=== PATIENT | female | born 1980 | race Caucasian/White ===

== ENCOUNTER 2016-05-07 19:00 | Inpatient (IN) | payer MEDICARE, MEDICAID ==
[~2016-05-07] VITALS: Ht 175.3 cm; Wt 65.3 kg
[~2016-05-07 19:00] MED LIST: ARIP882S IM; DIVA500T52 PO; FLUO-191 PO; VENL-68 PO
[2016-05-07] MEDS ORDERED: LORazepam 2 MG TABLET PO PRN (19:45)
[2016-05-07] MEDS ORDERED: ZOLPIDEM TARTRATE 10 MG TABLET PO PRN (19:45)
[2016-05-07] MEDS ORDERED: HALOPERIDOL 5 MG TABLET PO PRN (19:45)
[2016-05-07] MEDS ORDERED: ACETAMINOPHEN 325 MG TABLET PO PRN (20:15)
[2016-05-07] MEDS: DIVALPROEX SODIUM 500 MG ER TABLET PO SCH (20:35)
[2016-05-07 20:43] VITALS: BP 104/55
[2016-05-08 06:29] LABS: BASOPHILS % (AUTO) 0.3 % (0.0-2.0); EOSINOPHILS % (AUTO) 3.9 % (1.0-6.0); HEMATOCRIT 38.5 % (36-46); HEMOGLOBIN 12.8 g/dL (12.0-16.0); LYMPHOCYTES % (AUTO) 24.9 % (22.0-44.0); MEAN CORPUSCULAR HEMOGLOBIN 30.2 pg (26.0-34.0); MEAN CORPUSCULAR HGB CONC 33.3 G/dL (31.0-37.0); MEAN CORPUSCULAR VOLUME 91 fL (80-100); MONOCYTES # (AUTO) 0.6 K/uL (0.1-1.0); MONOCYTES % (AUTO) 7.8 % (2.0-9.0); NEUTROPHILS % (AUTO) 63.1 % (40.0-70.0); PLATELET COUNT (AUTO) 327 K/uL (150-450); RED BLOOD CELL COUNT(AUTO) 4.25 MIL/uL (4.00-5.20); RED CELL DISTRIBUTION WIDTH 13.8 % (11.5-14.5); WHITE BLOOD COUNT (AUTO) 7.9 K/uL (4.5-11.0)
[2016-05-08 07:01] LABS: ALANINE AMINOTRANSFERASE 17 U/L (12-78); ANION GAP 6 mmol/L (8-16); ASPARTATE AMINOTRANSFERASE 13 U/L (15-37); BILIRUBIN,TOTAL 0.3 mg/dL (0.1-1.0); CARBON DIOXIDE 31 mmol/L (22-29); CHLORIDE 100 mmol/L (98-107); CREATININE 0.97 mg/dL (0.60-1.30); GLOMERULAR FILTR. RATE CALC > 60 mL/min (>60); POTASSIUM 4.7 mmol/L (3.5-5.1); SODIUM SERUM 137 mmol/L (136-145); TOTAL PROTEIN, SERUM 7.8 g/dL (6.4-8.2); UREA NITROGEN, BLOOD 17 mg/dL (7-18)
[2016-05-08 08:30] VITALS: BP 110/62
[2016-05-08] MEDS: PANTOPRAZOLE SODIUM 40 MG DR TABLET PO SCH (08:31)
[2016-05-08] MEDS: FLUoxetine HCL 20 MG CAPSULE PO SCH (08:31)
[2016-05-08] MEDS: VENLAFAXINE HCL 150 MG ER CAPSULE PO SCH (08:32)
[2016-05-08] MEDS: NICOTINE 14 MG/24 HOUR PATCH TD SCH (08:32)
[2016-05-08] MEDS: CEPHALEXIN MONOHYDRATE 500 MG CAPSULE PO SCH ×3 (08:32→17:17)
[2016-05-08] MEDS: SULFAMETHOX/TRIMETH DS 800-160 MG/TABLET PO SCH ×2 (08:32→17:17)
[2016-05-08] MEDS: MUPIROCIN CALCIUM 2% 22 GM OINTMENT NASAL SCH ×2 (11:15→17:17)
[2016-05-08] MEDS: MUPIROCIN CALCIUM 2% 22 GM OINTMENT TP SCH (14:44)
[2016-05-08 16:33] VITALS: BP 111/71
[2016-05-08] MEDS: DIVALPROEX SODIUM 500 MG ER TABLET PO SCH (21:38)
[2016-05-09] MEDS: MUPIROCIN CALCIUM 2% 22 GM OINTMENT TP SCH (08:36)
[2016-05-09] MEDS: MUPIROCIN CALCIUM 2% 22 GM OINTMENT NASAL SCH ×2 (08:36→16:48)
[2016-05-09] MEDS: FLUoxetine HCL 20 MG CAPSULE PO SCH (08:37)
[2016-05-09] MEDS: NICOTINE 14 MG/24 HOUR PATCH TD SCH (08:37)
[2016-05-09] MEDS: PANTOPRAZOLE SODIUM 40 MG DR TABLET PO SCH (08:37)
[2016-05-09] MEDS: SULFAMETHOX/TRIMETH DS 800-160 MG/TABLET PO SCH ×2 (08:37→16:47)
[2016-05-09] MEDS: CEPHALEXIN MONOHYDRATE 500 MG CAPSULE PO SCH ×3 (08:37→16:47)
[2016-05-09] MEDS: VENLAFAXINE HCL 150 MG ER CAPSULE PO SCH (08:38)
[2016-05-09 11:38] VITALS: BP 110/65
[2016-05-09 17:31] VITALS: BP 114/65
[2016-05-09] MEDS: DIVALPROEX SODIUM 500 MG ER TABLET PO SCH (20:24)
[2016-05-10] MEDS: PANTOPRAZOLE SODIUM 40 MG DR TABLET PO SCH (09:01)
[2016-05-10] MEDS: SULFAMETHOX/TRIMETH DS 800-160 MG/TABLET PO SCH ×2 (09:01→16:19)
[2016-05-10] MEDS: MUPIROCIN CALCIUM 2% 22 GM OINTMENT NASAL SCH ×2 (09:02→16:19)
[2016-05-10] MEDS: CEPHALEXIN MONOHYDRATE 500 MG CAPSULE PO SCH ×3 (09:02→16:19)
[2016-05-10] MEDS: FLUoxetine HCL 20 MG CAPSULE PO SCH (09:02)
[2016-05-10] MEDS: VENLAFAXINE HCL 150 MG ER CAPSULE PO SCH (09:04)
[2016-05-10] MEDS: MUPIROCIN CALCIUM 2% 22 GM OINTMENT TP SCH (09:05)
[2016-05-10] MEDS: NICOTINE 14 MG/24 HOUR PATCH TD SCH (09:40)
[2016-05-10 17:58] VITALS: BP 105/60
[2016-05-10] MEDS: DIVALPROEX SODIUM 500 MG ER TABLET PO SCH (20:07)
[2016-05-11 08:16] VITALS: BP 103/50
[2016-05-11] MEDS: PANTOPRAZOLE SODIUM 40 MG DR TABLET PO SCH (08:20)
[2016-05-11] MEDS: CEPHALEXIN MONOHYDRATE 500 MG CAPSULE PO SCH ×3 (08:20→16:15)
[2016-05-11] MEDS: SULFAMETHOX/TRIMETH DS 800-160 MG/TABLET PO SCH ×2 (08:20→16:15)
[2016-05-11] MEDS: VENLAFAXINE HCL 150 MG ER CAPSULE PO SCH (08:20)
[2016-05-11] MEDS: FLUoxetine HCL 20 MG CAPSULE PO SCH (08:20)
[2016-05-11] MEDS: NICOTINE 14 MG/24 HOUR PATCH TD SCH (08:22)
[2016-05-11] MEDS: MUPIROCIN CALCIUM 2% 22 GM OINTMENT NASAL SCH ×2 (12:39→16:15)
[2016-05-11] MEDS: MUPIROCIN CALCIUM 2% 22 GM OINTMENT TP SCH (12:40)
[2016-05-11 17:01] VITALS: BP 110/61
[2016-05-11 17:50] LABS: APPEARANCE,URINE CLOUDY (CLEAR); GLUCOSE, URINE (UA) NEGATIVE (NEGATIVE); KETONES,URINE NEGATIVE (NEGATIVE); LEUKOCYTE ESTERASE ,URINE MODERATE (NEGATIVE); OCCULT BLOOD,URINE NEGATIVE (NEGATIVE); PROTEIN,URINE NEGATIVE (NEGATIVE)
[2016-05-11 18:09] LABS: ADD UA MICROSCOPIC YES
[2016-05-11 19:02] LABS: RBC,URINE 0-2 /HPF (0-2); SQUAMOUS EPITHELIAL CELL,UR Few /LPF (None Seen); TRANSITIONAL EPI CELLS,URINE Few /LPF (None Seen); WBC,URINE 26-50 /HPF (0-5)
[2016-05-11 19:03] LABS: URINALYSIS COMMENT Few Trichomonas seen
[2016-05-11] MEDS: DIVALPROEX SODIUM 500 MG ER TABLET PO SCH (20:38)
[2016-05-12 08:30] VITALS: BP 118/61
[2016-05-12] MEDS: VENLAFAXINE HCL 150 MG ER CAPSULE PO SCH (08:36)
[2016-05-12] MEDS: FLUoxetine HCL 20 MG CAPSULE PO SCH (08:36)
[2016-05-12] MEDS: MUPIROCIN CALCIUM 2% 22 GM OINTMENT NASAL SCH ×2 (08:36→16:32)
[2016-05-12] MEDS: SULFAMETHOX/TRIMETH DS 800-160 MG/TABLET PO SCH ×2 (08:36→16:32)
[2016-05-12] MEDS: PANTOPRAZOLE SODIUM 40 MG DR TABLET PO SCH (08:36)
[2016-05-12] MEDS: NICOTINE 14 MG/24 HOUR PATCH TD SCH (08:36)
[2016-05-12] MEDS: CEPHALEXIN MONOHYDRATE 500 MG CAPSULE PO SCH ×3 (08:36→16:32)
[2016-05-12] MEDS: MUPIROCIN CALCIUM 2% 22 GM OINTMENT TP SCH (09:00)
[2016-05-12 16:35] VITALS: BP 104/58
[2016-05-12] MEDS: DIVALPROEX SODIUM 500 MG ER TABLET PO SCH (20:25)
[2016-05-13 06:35] VITALS: BP 111/63
[2016-05-13 08:00] VITALS: BP 102/62
[2016-05-13] MEDS: SULFAMETHOX/TRIMETH DS 800-160 MG/TABLET PO SCH ×2 (08:02→17:14)
[2016-05-13] MEDS: VENLAFAXINE HCL 150 MG ER CAPSULE PO SCH (08:02)
[2016-05-13] MEDS: FLUoxetine HCL 20 MG CAPSULE PO SCH (08:02)
[2016-05-13] MEDS: PANTOPRAZOLE SODIUM 40 MG DR TABLET PO SCH (08:02)
[2016-05-13] MEDS: CEPHALEXIN MONOHYDRATE 500 MG CAPSULE PO SCH ×3 (08:02→17:14)
[2016-05-13] MEDS: NICOTINE 14 MG/24 HOUR PATCH TD SCH (08:04)
[2016-05-13] MEDS: MUPIROCIN CALCIUM 2% 22 GM OINTMENT TP SCH (09:32)
[2016-05-13 16:51] VITALS: BP 112/66
[2016-05-13] MEDS: DIVALPROEX SODIUM 500 MG ER TABLET PO SCH (20:15)
[2016-05-14 08:05] VITALS: BP 111/66
[2016-05-14] MEDS: CEPHALEXIN MONOHYDRATE 500 MG CAPSULE PO SCH ×2 (08:40→12:31)
[2016-05-14] MEDS: PANTOPRAZOLE SODIUM 40 MG DR TABLET PO SCH (08:40)
[2016-05-14] MEDS: SULFAMETHOX/TRIMETH DS 800-160 MG/TABLET PO SCH (08:40)
[2016-05-14] MEDS: NICOTINE 14 MG/24 HOUR PATCH TD SCH (08:40)
[2016-05-14] MEDS: VENLAFAXINE HCL 150 MG ER CAPSULE PO SCH (08:40)
[2016-05-14] MEDS: FLUoxetine HCL 20 MG CAPSULE PO SCH (08:40)
[2016-05-14] MEDS: MUPIROCIN CALCIUM 2% 22 GM OINTMENT TP SCH (08:41)
[2016-05-14] MEDS ORDERED: CEPH500 PO (13:49)
[2016-05-14] MEDS ORDERED: PANT40TA25 PO (13:50)
[2016-05-14] MEDS ORDERED: MUPI15CR TP (13:50)
[2016-05-14] MEDS ORDERED: BACTDSB PO (13:51)
[2016-06-04] MEDS ORDERED: ARIPiprazole LAUROXIL ER SUSPENSION 882 MG/3.2 ML SYRINGE IM SCH (09:00)
== END 2016-05-14 15:30 | disposition home or self-care (01) | DRG 885 ==
LOC: 3EX 19:00
DX: F25.0 Schizoaffective disorder, bipolar type (principal); L03.115 Cellulitis of right lower limb; L03.116 Cellulitis of left lower limb; N39.0 Urinary tract infection, site not specified; D64.9 Anemia, unspecified; F60.9 Personality disorder, unspecified; X08.8XXA Exposure to other specified smoke, fire and flames, initial encounter; T24.202A Burn of second degree of unspecified site of left lower limb, except ankle and foot, initial encounter; T24.201A Burn of second degree of unspecified site of right lower limb, except ankle and foot, initial encounter; Z59.0 Homelessness; Z98.890 Other specified postprocedural states; Z22.322 Carrier or suspected carrier of Methicillin resistant Staphylococcus aureus; Y93.89 Activity, other specified; Y92.89 Other specified places as the place of occurrence of the external cause; Y99.8 Other external cause status; Z79.899 Other long term (current) drug therapy
CPT/HCPCS: 80307; 87086

== ENCOUNTER 2018-06-05 14:39 | Inpatient (IN) | payer MEDICARE, MEDICAID ==
[~2018-06-05] VITALS: Ht 177.8 cm; Wt 76.7 kg
[~2018-06-05 14:39] MED LIST changes: +BACTDSB PO; +CEPH500 PO; +MUPI15CR TP; +PANT40TA25 PO
[2018-06-05] MEDS ORDERED: ABILIFY PO (18:39)
[2018-06-05] MEDS ORDERED: PROZAC PO (18:39)
[2018-06-05] MEDS ORDERED: ZOLPIDEM TARTRATE 10 MG TABLET PO PRN (18:45)
[2018-06-05 21:20] VITALS: BP 115/67
[2018-06-05] MEDS ORDERED: ONDANSETRON HCL 4 MG TABLET PO PRN (21:30)
[2018-06-05] MEDS ORDERED: MAG HYDROX/AL HYDROX/SIMETH ES 30 ML SUSPENSION UDCUP PO PRN (21:30)
[2018-06-05] MEDS ORDERED: CloNIDine HCL 0.1 MG TABLET PO PRN (21:30)
[2018-06-05] MEDS ORDERED: LOPERAMIDE HCL 2 MG CAPSULE PO PRN (21:30)
[2018-06-05] MEDS ORDERED: GuaiFENesin/D-METHORPHAN [SUGAR-FREE] 200-20MG/10 ML SYRUP UDCUP PO PRN (21:30)
[2018-06-05] MEDS ORDERED: IBUPROFEN 400 MG TABLET PO PRN (21:30)
[2018-06-05] MEDS ORDERED: MAGNESIUM HYDROXIDE SUSPENSION 30 ML UDCUP PO PRN (21:30)
[2018-06-05] MEDS ORDERED: ALBUTEROL SULFATE HFA 90 MCG/PUFF 8 GM INHALER IH PRN (21:30)
[2018-06-05] MEDS ORDERED: DOCUSATE SODIUM 100 MG CAPSULE PO PRN (21:30)
[2018-06-05] MEDS ORDERED: ACETAMINOPHEN 325 MG TABLET PO PRN (21:30)
[2018-06-05] MEDS ORDERED: PETROLATUM,WHITE 71 GM JELLY TP PRN (21:30)
[2018-06-06 07:08] VITALS: BP 110/62
[2018-06-06 08:28] LABS: BASOPHILS % (AUTO) 0.4 % (0.0-2.0); EOSINOPHILS % (AUTO) 2.2 % (1.0-6.0); HEMOGLOBIN 14.9 g/dL (12.0-16.0); LYMPHOCYTES # (AUTO) 2.5 K/uL (1.0-4.8); LYMPHOCYTES % (AUTO) 25.1 % (22.0-44.0); MEAN CORPUSCULAR HEMOGLOBIN 32.4 pg (26.0-34.0); MEAN CORPUSCULAR HGB CONC 35.8 G/dL (31.0-37.0); MEAN CORPUSCULAR VOLUME 90 fL (80-100); MONOCYTES # (AUTO) 0.9 K/uL (0.1-1.0); MONOCYTES % (AUTO) 9.1 % (2.0-9.0); NEUTROPHILS # (AUTO) 6.4 K/uL (1.8-7.7); NEUTROPHILS % (AUTO) 63.2 % (40.0-70.0); PLATELET COUNT (AUTO) 297 K/uL (150-450); RED BLOOD CELL COUNT(AUTO) 4.61 MIL/uL (4.00-5.20); RED CELL DISTRIBUTION WIDTH 12.9 % (11.5-14.5)
[2018-06-06 08:32] LABS: HEMATOCRIT 43.1 % (36-46)
[2018-06-06 08:59] LABS: HEMOGLOBIN A1C 4.7 % (4.5-6.2)
[2018-06-06 09:04] LABS: ALANINE AMINOTRANSFERASE 20 U/L (12-78); ALBUMIN 3.6 g/dL (3.4-5.0); ALKALINE PHOSPHATASE 80 U/L (46-116); ANION GAP 3 mmol/L (8-16); ASPARTATE AMINOTRANSFERASE 14 U/L (15-37); BILIRUBIN,TOTAL 0.5 mg/dL (0.1-1.0); CALCIUM, TOTAL 8.9 mg/dL (8.8-10.5); CARBON DIOXIDE 32 mmol/L (22-29); CHLORIDE 104 mmol/L (98-107); CHOL/HDL RATIO 3.7 (3.9-5.7); CHOLESTEROL 114 mg/dL (131-200); CREATININE 1.11 mg/dL (0.60-1.30); FREE T4 (FREE THYROXINE) 0.96 ng/dL (0.76-1.46); GLOMERULAR FILTR. RATE CALC 55 mL/min (>60); GLUCOSE,RANDOM 90 mg/dL (70-110); HCG,QUANTITATIVE < 1 mIU/mL (0-6); HDL CHOLESTEROL 31 mg/dL (40-60); LDL CHOL (CALC.) 67 mg/dL (0-130); POTASSIUM 4.4 mmol/L (3.5-5.1); SODIUM SERUM 139 mmol/L (136-145); TOTAL PROTEIN, SERUM 7.4 g/dL (6.4-8.2); TRIGLYCERIDES 82 mg/dL (15-150); UREA NITROGEN, BLOOD 22 mg/dL (7-18)
[2018-06-06] MEDS: FLUoxetine HCL 20 MG CAPSULE PO SCH (12:46)
[2018-06-06] MEDS: ARIPiprazole 10 MG TABLET PO SCH (12:46)
[2018-06-06 17:26] VITALS: BP 80/40
[2018-06-07 06:44] VITALS: BP 108/54
[2018-06-07] MEDS: FLUoxetine HCL 20 MG CAPSULE PO SCH (09:38)
[2018-06-07] MEDS: LORazepam 2 MG TABLET PO PRN (09:38)
[2018-06-07] MEDS: ARIPiprazole 10 MG TABLET PO SCH (09:38)
[2018-06-07 16:13] VITALS: BP 92/55
[2018-06-08 08:24] VITALS: BP 103/57
[2018-06-08] MEDS: FLUoxetine HCL 20 MG CAPSULE PO SCH (09:31)
[2018-06-08] MEDS: ARIPiprazole 10 MG TABLET PO SCH (09:31)
[2018-06-08] MEDS: HALOPERIDOL 5 MG TABLET PO PRN (09:31)
[2018-06-08] MEDS: LORazepam 2 MG TABLET PO PRN (09:31)
[2018-06-08 16:37] VITALS: BP 116/58
[2018-06-09 06:47] VITALS: BP 110/81
[2018-06-09] MEDS: ARIPiprazole 10 MG TABLET PO SCH (08:30)
[2018-06-09] MEDS: FLUoxetine HCL 20 MG CAPSULE PO SCH (08:30)
[2018-06-09 08:37] VITALS: BP 116/74
[2018-06-09 16:11] VITALS: BP 112/58
[2018-06-10 04:05] VITALS: BP 110/62
[2018-06-10 08:26] VITALS: BP 100/55
[2018-06-10] MEDS: FLUoxetine HCL 20 MG CAPSULE PO SCH (09:12)
[2018-06-10] MEDS: ARIPiprazole 15 MG TABLET PO SCH (09:12)
[2018-06-10] MEDS: NICOTINE 14 MG/24 HOUR PATCH TD PRN (14:42)
[2018-06-10 16:36] VITALS: BP 117/67
[2018-06-11 06:48] VITALS: BP 129/63
[2018-06-11] MEDS: ARIPiprazole 15 MG TABLET PO SCH (08:49)
[2018-06-11] MEDS: HALOPERIDOL 5 MG TABLET PO PRN (08:49)
[2018-06-11] MEDS: FLUoxetine HCL 20 MG CAPSULE PO SCH (08:49)
[2018-06-11] MEDS: LORazepam 2 MG TABLET PO PRN (08:49)
[2018-06-11 16:29] VITALS: BP 117/60
[2018-06-12 06:10] VITALS: BP 115/60
[2018-06-12 08:21] VITALS: BP 106/53
[2018-06-12] MEDS: ARIPiprazole 15 MG TABLET PO SCH (09:10)
[2018-06-12] MEDS: FLUoxetine HCL 20 MG CAPSULE PO SCH (09:10)
[2018-06-12] MEDS: LORazepam 2 MG TABLET PO PRN (12:24)
[2018-06-12 17:00] VITALS: BP 121/61
[2018-06-13 06:40] VITALS: BP 115/70
[2018-06-13 08:15] VITALS: BP 109/57
[2018-06-13] MEDS: FLUoxetine HCL 20 MG CAPSULE PO SCH (08:48)
[2018-06-13] MEDS: ARIPiprazole 15 MG TABLET PO SCH (08:48)
[2018-06-13] MEDS: NICOTINE 14 MG/24 HOUR PATCH TD PRN (08:55)
[2018-06-13 16:13] VITALS: BP 114/69
[2018-06-13] MEDS: LORazepam 2 MG TABLET PO PRN (16:14)
[2018-06-14 06:19] VITALS: BP 104/63
[2018-06-14 08:33] VITALS: BP 100/57
[2018-06-14] MEDS: ARIPiprazole 15 MG TABLET PO SCH (08:51)
[2018-06-14] MEDS: NICOTINE 14 MG/24 HOUR PATCH TD PRN (08:51)
[2018-06-14] MEDS: FLUoxetine HCL 20 MG CAPSULE PO SCH (08:51)
[2018-06-14] MEDS ORDERED: ARIPiprazole LAUROXIL ER SUSPENSION 882 MG/3.2 ML SYRINGE IM SCH (09:00)
[2018-06-14 16:24] VITALS: BP 114/65
[2018-06-15 06:20] VITALS: BP 126/82
[2018-06-15 08:11] VITALS: BP 108/65
[2018-06-15] MEDS: FLUoxetine HCL 20 MG CAPSULE PO SCH (08:43)
[2018-06-15] MEDS: ARIPiprazole 15 MG TABLET PO SCH (08:43)
[2018-06-15] MEDS: LORazepam 2 MG TABLET PO PRN (16:43)
[2018-06-15 16:52] VITALS: BP 108/66
[2018-06-15] MEDS ORDERED: FLUO-191 PO (21:46)
[2018-06-15] MEDS ORDERED: ARIP15TA2 PO (21:46)
[2018-06-16 06:35] VITALS: BP 108/65
[2018-06-16] MEDS: ARIPiprazole 15 MG TABLET PO SCH (08:03)
[2018-06-16] MEDS: FLUoxetine HCL 20 MG CAPSULE PO SCH (08:03)
[2018-06-16 08:38] VITALS: BP 100/50
[2018-06-16] MEDS: NICOTINE 14 MG/24 HOUR PATCH TD PRN (10:27)
[2018-06-16 16:11] VITALS: BP_SYST 100; BP_DIAS 59; BP_DIAS 60
[2018-06-17 00:49] VITALS: BP 110/68
[2018-06-17 08:20] VITALS: BP 104/56
[2018-06-17] MEDS: FLUoxetine HCL 20 MG CAPSULE PO SCH (09:42)
[2018-06-17] MEDS: ARIPiprazole 15 MG TABLET PO SCH (09:42)
[2018-06-17 16:14] VITALS: BP 109/67
[2018-06-18 01:27] VITALS: BP 117/88
[2018-06-18] MEDS: HALOPERIDOL 5 MG TABLET PO PRN (04:46)
[2018-06-18 08:02] VITALS: BP 102/60
[2018-06-18] MEDS: FLUoxetine HCL 20 MG CAPSULE PO SCH (09:12)
[2018-06-18] MEDS: ARIPiprazole 15 MG TABLET PO SCH (09:12)
[2018-06-18] MEDS: NICOTINE 14 MG/24 HOUR PATCH TD PRN (09:15)
[2018-06-18 15:58] VITALS: BP 141/76
[2018-06-18 17:00] VITALS: BP 141/76
[2018-06-19 05:36] VITALS: BP 106/66
[2018-06-19 08:00] VITALS: BP 116/74
[2018-06-19] MEDS: HALOPERIDOL 5 MG TABLET PO PRN ×2 (08:17→12:30)
[2018-06-19] MEDS: ARIPiprazole 15 MG TABLET PO SCH (08:17)
[2018-06-19] MEDS: FLUoxetine HCL 20 MG CAPSULE PO SCH (08:17)
[2018-06-19] MEDS: NICOTINE 14 MG/24 HOUR PATCH TD PRN (12:37)
[2018-06-19 16:00] VITALS: BP 119/71
[2018-06-20 06:30] VITALS: BP 103/64
[2018-06-20 08:15] VITALS: BP 101/64
[2018-06-20] MEDS: ARIPiprazole 15 MG TABLET PO SCH (08:34)
[2018-06-20] MEDS: FLUoxetine HCL 20 MG CAPSULE PO SCH (08:35)
[2018-06-20] MEDS: NICOTINE 14 MG/24 HOUR PATCH TD PRN (13:18)
[2018-06-20] MEDS: HALOPERIDOL 5 MG TABLET PO PRN ×2 (13:19→20:28)
[2018-06-20 16:13] VITALS: BP 108/63
[2018-06-21 06:37] VITALS: BP 114/69
[2018-06-21] MEDS: ARIPiprazole 15 MG TABLET PO SCH (08:18)
[2018-06-21] MEDS: FLUoxetine HCL 20 MG CAPSULE PO SCH (08:18)
[2018-06-21] MEDS: NICOTINE 14 MG/24 HOUR PATCH TD PRN (08:19)
[2018-06-21 08:24] VITALS: BP 113/65
[2018-06-21 17:07] VITALS: BP 111/66
[2018-06-22 08:21] VITALS: BP 100/59
[2018-06-22] MEDS: NICOTINE 14 MG/24 HOUR PATCH TD PRN (08:33)
[2018-06-22] MEDS: ARIPiprazole 15 MG TABLET PO SCH (08:34)
[2018-06-22] MEDS: FLUoxetine HCL 20 MG CAPSULE PO SCH (08:34)
[2018-06-22 12:45] VITALS: BP 157/96
[2018-06-22 18:30] VITALS: BP 101/67
[2018-06-23 00:52] VITALS: BP 104/65
[2018-06-23 08:12] VITALS: BP 107/66
[2018-06-23] MEDS: FLUoxetine HCL 20 MG CAPSULE PO SCH (08:37)
[2018-06-23] MEDS: ARIPiprazole 15 MG TABLET PO SCH (08:37)
[2018-06-23 16:19] VITALS: BP 126/68
[2018-06-24 00:15] VITALS: BP 111/67
[2018-06-24] MEDS: FLUoxetine HCL 20 MG CAPSULE PO SCH (07:57)
[2018-06-24] MEDS: ARIPiprazole 15 MG TABLET PO SCH (07:57)
[2018-06-24 08:16] VITALS: BP 108/62
[2018-06-24] MEDS: NICOTINE 14 MG/24 HOUR PATCH TD PRN (13:31)
[2018-06-24 16:18] VITALS: BP 118/76
[2018-06-24] MEDS: DIVALPROEX SODIUM 250 MG ER TABLET PO SCH (16:24)
[2018-06-25 01:15] VITALS: BP 104/63
[2018-06-25 08:08] VITALS: BP 127/69
[2018-06-25] MEDS: DIVALPROEX SODIUM 250 MG ER TABLET PO SCH ×2 (08:55→16:10)
[2018-06-25] MEDS: FLUoxetine HCL 20 MG CAPSULE PO SCH (08:55)
[2018-06-25] MEDS: ARIPiprazole 15 MG TABLET PO SCH (08:56)
[2018-06-25] MEDS: NICOTINE 14 MG/24 HOUR PATCH TD PRN (14:02)
[2018-06-25 16:08] VITALS: BP 109/65
[2018-06-26 01:19] VITALS: BP 116/62
[2018-06-26] MEDS: FLUoxetine HCL 20 MG CAPSULE PO SCH (08:19)
[2018-06-26] MEDS: DIVALPROEX SODIUM 250 MG ER TABLET PO SCH ×2 (08:19→16:04)
[2018-06-26] MEDS: ARIPiprazole 15 MG TABLET PO SCH (08:19)
[2018-06-26 08:27] VITALS: BP 125/67
[2018-06-26 16:25] VITALS: BP 122/70
[2018-06-27 07:05] VITALS: BP 118/76
[2018-06-27] MEDS: DIVALPROEX SODIUM 250 MG ER TABLET PO SCH (08:12)
[2018-06-27] MEDS: FLUoxetine HCL 20 MG CAPSULE PO SCH (08:12)
[2018-06-27] MEDS ORDERED: DIVA250T45 PO (09:23)
[2018-06-27 09:33] LABS: ALANINE AMINOTRANSFERASE 15 U/L (12-78); ALBUMIN 3.3 g/dL (3.4-5.0); ALKALINE PHOSPHATASE 83 U/L (46-116); ANION GAP 7 mmol/L (8-16); ASPARTATE AMINOTRANSFERASE 12 U/L (15-37); BILIRUBIN,TOTAL 0.7 mg/dL (0.1-1.0); CALCIUM, TOTAL 8.9 mg/dL (8.8-10.5); CARBON DIOXIDE 27 mmol/L (22-29); CHLORIDE 105 mmol/L (98-107); GLOMERULAR FILTR. RATE CALC > 60 mL/min (>60); GLUCOSE,RANDOM 76 mg/dL (70-110); POTASSIUM 4.1 mmol/L (3.5-5.1); SODIUM SERUM 139 mmol/L (136-145); TOTAL PROTEIN, SERUM 6.8 g/dL (6.4-8.2); UREA NITROGEN, BLOOD 14 mg/dL (7-18); VALPROIC ACID 29 mcg/mL (50-100)
[2018-06-27 09:56] LABS: BASOPHILS % (AUTO) 0.4 % (0.0-2.0); EOSINOPHILS % (AUTO) 1.7 % (1.0-6.0); HEMATOCRIT 39.5 % (36-46); HEMOGLOBIN 13.6 g/dL (12.0-16.0); LYMPHOCYTES # (AUTO) 1.3 K/uL (1.0-4.8); LYMPHOCYTES % (AUTO) 15.1 % (22.0-44.0); MEAN CORPUSCULAR HEMOGLOBIN 30.8 pg (26.0-34.0); MEAN CORPUSCULAR HGB CONC 34.4 G/dL (31.0-37.0); MEAN CORPUSCULAR VOLUME 89 fL (80-100); MONOCYTES # (AUTO) 0.7 K/uL (0.1-1.0); MONOCYTES % (AUTO) 8.4 % (2.0-9.0); NEUTROPHILS # (AUTO) 6.4 K/uL (1.8-7.7); NEUTROPHILS % (AUTO) 74.4 % (40.0-70.0); PLATELET COUNT (AUTO) 252 K/uL (150-450); RED BLOOD CELL COUNT(AUTO) 4.42 MIL/uL (4.00-5.20); RED CELL DISTRIBUTION WIDTH 13.1 % (11.5-14.5)
== END 2018-06-27 13:00 | disposition home or self-care (01) | DRG 885 ==
LOC: B3A 18:36 → B2S 06-22 16:25
PROVIDERS: ADMIT Psychiatry & Neurology Psychiatry; ATTEND Psychiatry & Neurology Psychiatry
DX: F25.0 Schizoaffective disorder, bipolar type (principal); L03.90 Cellulitis, unspecified; Z59.0 Homelessness; D64.9 Anemia, unspecified; F41.9 Anxiety disorder, unspecified; G44.209 Tension-type headache, unspecified, not intractable; M19.079 Primary osteoarthritis, unspecified ankle and foot; R45.87 Impulsiveness
CPT/HCPCS: 83036; 84439; 84443; 87081; 90686

== ENCOUNTER 2018-06-22 14:57 | Emergency (ER) | payer MEDICARE, OTHER ==
[~2018-06-22] VITALS: Ht 175.3 cm; Wt 77.3 kg
[~2018-06-22 14:57] MED LIST changes: +ABILIFY PO; +ARIP15TA2 PO; -ARIP882S IM; -BACTDSB PO; -CEPH500 PO; -DIVA500T52 PO; -MUPI15CR TP; -PANT40TA25 PO; +PROZAC PO; -VENL-68 PO
[2018-06-22 16:10] VITALS: BP 121/65
== END 2018-06-22 16:30 | disposition other institution (70) ==
LOC: EMS 14:59
DX: S09.90XA Unspecified injury of head, initial encounter (principal); Y04.0XXA Assault by unarmed brawl or fight, initial encounter; Y93.89 Activity, other specified; Y92.89 Other specified places as the place of occurrence of the external cause; Y99.8 Other external cause status

== ENCOUNTER 2020-01-08 16:58 | Emergency (ER) | payer MEDICARE, OTHER ==
[~2020-01-08] VITALS: Ht 175.3 cm; Wt 68.2 kg
[~2020-01-08 16:58] MED LIST changes: -ABILIFY PO; -ARIP15TA2 PO; +DIVA-85 PO; -PROZAC PO
[2020-01-08 19:12] LABS: BASOPHILS % (AUTO) 0.4 % (0.0-2.0); EOSINOPHILS % (AUTO) 1.1 % (1.0-6.0); HEMATOCRIT 41.1 % (36-46); HEMOGLOBIN 13.7 g/dL (12.0-16.0); LYMPHOCYTES # (AUTO) 2.4 K/uL (1.0-4.8); MEAN CORPUSCULAR HEMOGLOBIN 30.7 pg (26.0-34.0); MEAN CORPUSCULAR HGB CONC 33.2 G/dL (31.0-37.0); MEAN CORPUSCULAR VOLUME 93 fL (80-100); MONOCYTES # (AUTO) 0.8 K/uL (0.1-1.0); MONOCYTES % (AUTO) 6.2 % (2.0-9.0); NEUTROPHILS % (AUTO) 74.3 % (40.0-70.0); PLATELET COUNT (AUTO) 256 K/uL (150-450); RED BLOOD CELL COUNT(AUTO) 4.44 MIL/uL (4.00-5.20); RED CELL DISTRIBUTION WIDTH 13.5 % (11.5-14.5)
[2020-01-08 19:21] LABS: ANION GAP 8 mmol/L (8-16); CALCIUM, TOTAL 8.3 mg/dL (8.8-10.5); CARBON DIOXIDE 27 mmol/L (22-29); CHLORIDE 107 mmol/L (98-107); CREATININE 0.94 mg/dL (0.60-1.30); GLOMERULAR FILTR. RATE CALC > 60 mL/min (>60); GLUCOSE,RANDOM 91 mg/dL (70-110); POTASSIUM 3.6 mmol/L (3.5-5.1); SODIUM SERUM 142 mmol/L (136-145); UREA NITROGEN, BLOOD 9 mg/dL (7-18)
[2020-01-08 19:27] LABS: ALANINE AMINOTRANSFERASE 14 U/L (12-78); ALBUMIN 3.4 g/dL (3.4-5.0); ALKALINE PHOSPHATASE 80 U/L (46-116); ASPARTATE AMINOTRANSFERASE 10 U/L (15-37); BILIRUBIN,TOTAL 0.2 mg/dL (0.1-1.0); TOTAL PROTEIN, SERUM 6.3 g/dL (6.4-8.2)
[2020-01-08 22:00] VITALS: BP 109/62
== END 2020-01-08 22:13 | disposition home or self-care (01) ==
LOC: EMS 17:08
DX: F10.129 Alcohol abuse with intoxication, unspecified (principal); F17.200 Nicotine dependence, unspecified, uncomplicated; F25.9 Schizoaffective disorder, unspecified; Y90.6 Blood alcohol level of 120-199 mg/100 ml
CPT/HCPCS: 36415; 80053; 85025; 99283; G0480